=== PATIENT | female | born 1960 | race African-American/Black ===

== ENCOUNTER 2020-02-27 18:08 | Emergency (ER) | payer OTHER ==
--- NOTE | 2020-02-27 18:48 | ER Document Report ---
ED Medical Screen (RME) - General Chief Complaint: Breathing Difficulty Stated Complaint: SENT BY DR ARGUETA/POSSIBLE PNEUMONIA Time Seen by Provider: 02/27/20 18:44 Primary Care Provider: RICHARD MUSA MD [Primary Care Provider] - Follow up as needed Mode of Arrival: Ambulatory Information source: Patient Notes: 59-year-old female presented to ED for complaint diagnosis of pneumonia. Patient states she went to Dr. Musa's office yesterday had blood work and he sent her for CT of the abdomen pelvis today. She states that Dr. Musa told her that the CT showed a pneumonia and he sent her to the emergency room to get blood work and covered test and be treated for the pneumonia because he would be close before her results returned. Patient is alert oriented respirations regular nonlabored speaking in full sentences. She states she has had right abdominal pain not as much of a cough or fever. We will get blood work chest x-ray and covered test and treat accordingly. I have greeted and performed a rapid initial assessment of this patient. A comprehensive ED assessment and evaluation of the patient, analysis of test results and completion of medical decision making process will be conducted by an additional ED providers. TRAVEL OUTSIDE OF THE [place] IN LAST 30 DAYS: No - Related Data Allergies/Adverse Reactions: No Known Allergies Allergy (Verified 04/04/12 08:04) Past Medical History - Past Medical History Cardiac Medical History: Reports: Hx Hypertension Pulmonary Medical History: Denies: Hx Tuberculosis Neurological Medical History: Denies: Hx Seizures Endocrine Medical History: Reports: Hx Diabetes Mellitus Type 1, Hx Diabetes Mellitus Type 2 Skin Medical History: Denies Hx MRSA Infectious Medical History: Denies: Hx MRSA Past Surgical History: Reports: Hx Section - x3, Hx Cholecystectomy, Hx Hysterectomy - larry salpingoophorectomy. Denies: Hx Pacemaker - Immunizations Hx Diphtheria, Pertussis, Tetanus Vaccination: No Doctor's Discharge - Discharge Referrals: RICHARD MUSA MD [Primary Care Provider] - Follow up as needed
[2020-02-27 19:22] LABS: ABSOLUTE LYMPHOCYTES (AUTO) 1.6 10^3/uL (0.5-4.7); ABSOLUTE MONOCYTES (AUTO) 0.6 10^3/uL (0.1-1.4); ABSOLUTE NEUT (AUTO) 3.6 10^3/uL (1.7-8.2); BASOPHILS % (AUTO) 0.4 % (0-2); EOSINOPHILS % (AUTO) 0.4 % (0-6); HEMATOCRIT 39.8 % (36.0-47.0); HEMOGLOBIN 13.4 g/dL (12.0-15.5); MEAN CORPUSCULAR HEMOGLOBIN 28.7 pg (27.0-33.4); MEAN CORPUSCULAR HGB CONC 33.7 g/dL (32.0-36.0); MEAN CORPUSCULAR VOLUME 85 fl (80-97); PLATELET COUNT 236 10^3/uL (150-450); RED BLOOD COUNT 4.68 10^6/uL (3.72-5.28); RED CELL DISTRIBUTION WIDTH 14.4 % (11.5-14.0); SEGMENTED NEUTROPHILS % (AUTO) 62.2 % (42-78); TOTAL CELLS COUNTED % (AUTO) 100 %; WHITE BLOOD COUNT 5.8 10^3/uL (4.0-10.5)
[2020-02-27 19:40] LABS: ALKALINE PHOSPHATASE 68 U/L (38-126); ANION GAP 6 (5-19); ASPARTATE AMINO TRANSFERASE 38 U/L (14-36); BILIRUBIN,DIRECT 0.3 mg/dL (0.0-0.4); BILIRUBIN,TOTAL 0.5 mg/dL (0.2-1.3); BLOOD UREA NITROGEN 12 mg/dL (7-20); CALCIUM 9.5 mg/dL (8.4-10.2); CARBON DIOXIDE 24 mmol/L (22-30); CHLORIDE 109 mmol/L (98-107); GLUCOSE 207 mg/dL (75-110); POTASSIUM 4.3 mmol/L (3.6-5.0); TOTAL PROTEIN 6.8 g/dL (6.3-8.2)
[2020-02-27] MEDS ORDERED: DEXAMETHASONE SOD PHOS INJ 10 MG/1 ML VIAL IV ONE (20:31)
[2020-02-27] MEDS ORDERED: IPRATROPIUM/ALBUTEROL 0.5-2.5 MG/3 ML AMPUL NEB ONE (20:31)
[2020-02-27] MEDS ORDERED: NORMAL SALINE 1000 ML 1,000 ML IV ONE (20:32)
--- NOTE | 2020-02-27 20:35 | ER Document Report ---
ED General - General Chief Complaint: Breathing Difficulty Stated Complaint: SENT BY DR ARGUETA/POSSIBLE PNEUMONIA Time Seen by Provider: 02/27/20 18:44 Primary Care Provider: RICHARD MUSA MD [Primary Care Provider] - Follow up in 1 week Mode of Arrival: Ambulatory TRAVEL OUTSIDE OF THE [place] IN LAST 30 DAYS: No - HPI Notes: Patient is a 59-year-old female with a history of DMII who presents with possible pneumonia that was diagnosed earlier today. Patient states her symptoms began with diffuse abdominal pain 2 to 3 weeks ago. She followed up with her primary care, Dr. Musa, and had a CT abdomen and pelvis done today. CT showed no evidence of acute intra-abdominal infectious/inflammatory processes. Partially imaged lung bases reveals multifocal airspace opacity suggesting multi lobar pneumonia. Today, patient continues to have diffuse abdominal pain that she describes as a sharp burning pain. She also reports onset of cough today that is productive in nature. She denies chest pain, shortness of breath, fever, nasal congestion, sore throat, nausea, vomiting, diarrhea, constipation, and dysuria. Patient denies tobacco, alcohol or recreational drug use. - Related Data Allergies/Adverse Reactions: No Known Allergies Allergy (Verified 02/27/20 20:30) Past Medical History - General Information source: Patient - Social History Smoking Status: Unknown if Ever Smoked Frequency of alcohol use: None Drug Abuse: None Family History: Reviewed & Not Pertinent - Past Medical History Cardiac Medical History: Reports: Hx Hypertension Pulmonary Medical History: Denies: Hx Tuberculosis Neurological Medical History: Denies: Hx Seizures Endocrine Medical History: Reports: Hx Diabetes Mellitus Type 1, Hx Diabetes Mellitus Type 2 Skin Medical History: Denies Hx MRSA Infectious Medical History: Denies: Hx MRSA Past Surgical History: Reports: Hx Section - x3, Hx Cholecystectomy, Hx Hysterectomy - larry salpingoophorectomy. Denies: Hx Pacemaker - Immunizations Hx Diphtheria, Pertussis, Tetanus Vaccination: No Review of Systems - Review of Systems Constitutional: No symptoms reported EENT: No symptoms reported Cardiovascular: No symptoms reported Respiratory: See HPI Gastrointestinal: See HPI Genitourinary: No symptoms reported Female Genitourinary: No symptoms reported Musculoskeletal: No symptoms reported Skin: No symptoms reported Hematologic/Lymphatic: No symptoms reported Neurological/Psychological: No symptoms reported Physical Exam - Vital signs Vitals: Temp Pulse Resp BP Pulse Ox 99.2 F 83 16 145/72 H 100 02/27/20 18:49 02/27/20 18:49 02/27/20 18:49 02/27/20 18:49 02/27/20 18:49 - Notes Notes: PHYSICAL EXAMINATION: VITALS: Vitals reviewed and within normal limits. GENERAL: Well-appearing, well-nourished and in no acute distress. HEAD: Atraumatic, normocephalic. EYES: Pupils equal round and reactive to light, extraocular movements intact, sclera anicteric, conjunctiva are normal. ENT: nares patent, oropharynx clear without exudates. Moist mucous membranes. NECK: Normal range of motion, supple without lymphadenopathy. LUNGS: Inspiratory and expiratory wheezes noted through out bilaterally. No labored respirations. HEART: Regular rate and rhythm without murmurs. ABDOMEN: Soft abdomen with normoactive bowel sounds. Lower abdominal tenderness just below the umbilicus. No guarding, no rebound. No masses appreciated. EXTREMITIES: Normal range of motion, no pitting or edema. No cyanosis. NEUROLOGICAL: No focal neurological deficits. Moves all extremities spo ntaneously and on command. PSYCH: Normal mood, normal affect. SKIN: Warm, Dry, normal turgor, no rashes or lesions noted. Course - Re-evaluation Re-evalutation: Patient is a 59-year-old female with a history of DMII who presents with possible pneumonia that was diagnosed earlier today. She had a CT abdomen and pelvis done today which showed no evidence of acute intra-abdominal infectious/inflammatory processes. Partially imaged lung bases reveals multifocal airspace opacity suggesting multi lobar pneumonia. Patient endorses abdominal pain and cough but no other symptoms. Vital signs are within normal limits. On exam, inspiratory and expiratory wheezes are noted throughout bilaterally. Lower abdominal tenderness noted just below the umbilicus. Duoneb, decadron and 1L IV fluids ordered for symptomatic relief. WBC within lower normal limits at 5.8. AST and ALT elevated mildly at 38 each. Glucose 207. Chest x-ray shows no overt acute findings in chest x-ray. However, CT abdomen pelvis demonstrates multiple patchy groundglass infiltrates in the lung bases which are less well seen on chest x-ray and may be compatible with viral pneumonia. I ordered ambulation with pulse ox and patient tolerated it well with pulse of 95 and O2 Sat 96-98%. Based on patient's symptoms, I have a concern for COVID-19 and recommended she get tested. Patient agreed. Based on CT findings and the patient's normal vital signs and oxygenation, I believe it is safe to discharge the patient home. Patient given initial dose of azithromycin and will be given a prescription as well. Detailed return precautions given and patient instructed to follow up with her PCP in one week. - Vital Signs Vital signs: Temp Pulse Resp BP Pulse Ox 98.8 F 97 87 H 133/64 H 96 02/27/20 23:59 02/27/20 23:59 02/27/20 23:59 02/27/20 23:59 02/27/20 23:59 - Laboratory Result Diagrams: 02/27/20 19:05 02/27/20 19:05 Laboratory results interpreted by me: 02/27/20 02/27/20 19:05 19:05 RDW 14.4 H Chloride 109 H Glucose 207 H AST 38 H ALT 38 H - Diagnostic Test Radiology reviewed: Image reviewed, Reports reviewed Radiology results interpreted by me: Chest X-Ray 02/27/20 18:25 IMPRESSION: No overt acute findings in chest x-ray. However, CT abdomen pelvis demonstrates multiple patchy groundglass infiltrates in the lung bases which are less well seen on chest x-ray and may be compatible with viral pneumonia. Discharge - Discharge Clinical Impression: Cough Pneumonia Qualifiers: Pneumonia type: due to unspecified organism Laterality: bilateral Lung location: lower lobe of lung Qualified Code(s): J18.9 - Pneumonia, unspecified organism Abdominal pain Qualifiers: Abdominal location: generalized Qualified Code(s): R10.84 - Generalized abdominal pain Condition: Stable Disposition: HOME, SELF-CARE Additional Instructions: Pneumonia Your examination indicates that you have pneumonia. This is an infection of the lung tissue, usually caused by bacteria or a virus. Symptoms include cough, fever, shaking chills, chest pain, shortness of breath, and coughing up bloody sputum. Treatment for bacterial pneumonia includes rest, antibiotics for 10 to 14 days, increasing your clear liquid intake, a cool mist humidifier at your bedside, and fever medication. Often, a repeat chest X-ray is performed in a few weeks--even if you feel better--to ascertain whether the infection has completely resolved and no underlying lung problem is present. You should call the physician if you develop persistent vomiting, high fever that does not respond to fever medication, increasing shortness of breath, confusion, or lethargy. Also, failure to improve within two to three days is an indication for re-examination. Prescriptions: Azithromycin 250 mg PO DAILY 4 Days #4 tablet Forms: Return to Work Referrals: RICHARD MUSA MD [Primary Care Provider] - Follow up in 1 week
[2020-02-27 21:46] LABS: VENOUS BLOOD HCO3 22.9 mmol/L (20-32); VENOUS BLOOD PCO2 44.4 mmHg (35-63); VENOUS BLOOD PH 7.33 (7.30-7.42)
--- NOTE | 2020-02-27 21:59 | RADIOLOGY REPORT (SQ) ---
EXAM DESCRIPTION: XR CHEST 1 VIEW COMPLETED DATE/TME: 02/27/2020 18:25 CLINICAL HISTORY: 59 years, Female, pneumonia COMPARISON: CT abdomen pelvis from today. TECHNIQUE: Portable upright chest x-ray FINDINGS: Cardiomediastinal silhouette is not enlarged. No overt acute lung or pleural abnormalities. IMPRESSION: No overt acute findings in chest x-ray. However, CT abdomen pelvis demonstrates multiple patchy groundglass infiltrates in the lung bases which are less well seen on chest x-ray and may be compatible with viral pneumonia.
[2020-02-27] MEDS ORDERED: AZITHROMYCIN 250 MG TABLET PO ONE (23:36)
[2020-02-28] VITALS: BP 133/64
== END 2020-02-27 23:58 | disposition home or self-care (01) ==
LOC: ER 18:08
DX: J18.9 Pneumonia, unspecified organism (principal); U07.1 COVID-19; R05 Cough; R10.84 Generalized abdominal pain; R74.0 Nonspecific elevation of levels of transaminase and lactic acid dehydrogenase [LDH]; E11.9 Type 2 diabetes mellitus without complications; I10 Essential (primary) hypertension; Z90.49 Acquired absence of other specified parts of digestive tract
CPT/HCPCS: 94640; 99284; 96361; 96365; 36415; 87040; 85025; 80053; 82565; 82803; 71045; 74177; U0003; J7030; J1100; C9803; 87635

== ENCOUNTER → 2020-02-27 | Outpatient (CLI) | payer OTHER ==
--- NOTE | 2020-02-27 12:47 | RADIOLOGY REPORT (SQ) ---
EXAM DESCRIPTION: CT ABD/PELVIS WITH IV ONLY IMAGES COMPLETED DATE/TIME: 02/27/2020 12:17 pm REASON FOR STUDY: R10.84 GENERALIZED ABDOMINAL PAIN R10.84 GENERALIZED ABDOMINAL PAIN COMPARISON: 06/21/2014 TECHNIQUE: CT scan of the abdomen and pelvis performed using helical scanning technique with dynamic intravenous contrast injection. No oral contrast. Images reviewed with lung, soft tissue, and bone windows. Reconstructed coronal and sagittal MPR images reviewed. Delayed images for evaluation of the urinary system also acquired. All images stored on PACS. All CT scanners at this facility use dose modulation, iterative reconstruction, and/or weight based d osing when appropriate to reduce radiation dose to as low as reasonably achievable (ALARA). [facility]: Dose Right [facility]: CareDose [facility]: Dose Right [facility]: Teradose 4D [facility]: Connected Data CONTRAST TYPE AND DOSE: contrast/concentration: Isovue 350.00 mmol/ml; Total Contrast Delivered: 99. 0 ml; Total Saline Delivered: 29.2 ml RENAL FUNCTION: Creatinine 0.6 RADIATION DOSE: CT Rad equipment meets quality standard of care and radiation dose reduction techniq ues were employed. CTDIvol: 11.2 - 15.0 mGy. DLP: 1604 mGy-cm.. LIMITATIONS: None. FINDINGS: LOWER CHEST: Multifocal rounded mixed interstitial and airspace opacities. LIVER: Hepatic steatosis. No focal mass. No dilated ducts. SPLEEN: Normal size. No focal lesions. PANCREAS: No masses. No significant calcifications. No adjacent inflammation or peripancreatic fluid collections. Pancreatic duct not dilated. GALLBLADDER: Surgically absent. ADRENAL GLANDS: No significant masses or asymmetry. RIGHT KIDNEY AND URETER: No solid masses. No significant calcifications. No hydronephrosis or hyd roureter. LEFT KIDNEY AND URETER: No solid masses. Likely tiny cortical cyst. No significant calcifications. No hydronephrosis or hydroureter. AORTA AND VESSELS: No aneurysm. No dissection. Renal arteries, SMA, celiac without stenosis. RETROPERITONEUM: No retroperitoneal adenopathy, hemorrhage or masses. BOWEL AND PERITONEAL CAVITY: No masses or inflammatory changes. No free fluid or peritoneal masses. APPENDIX: Surgically absent. PELVIS: No mass. No free fluid. Normal bladder. ABDOMINAL WALL: No masses. No hernias. BONES: No significant or acute findings. OTHER: No other significant finding. IMPRESSION: 1. No evidence of acute intra-abdominal infectious/ inflammatory process. 2. Partially imaged lung bases reveals multifocal airspace opacities suggesting multi lobar pneumoni a. Given pattern, recommend consideration for atypical etiologies such as viral (COVID) in treatment planning. TECHNICAL DOCUMENTATION: JOB ID: [id number] Quality ID # [id number]: Final reports with documentation of one or more dose reduction techniques (e.g., Au tomated exposure control, adjustment of the mA and/or kV according to patient size, use of iterative reconstruction technique) 2010 [email or web address]- All Rights Reserved Reading location - IP/workstation name: [email or web address]
== END ==
LOC: RAD 12:22
PROVIDERS: ATTEND Internal Medicine
DX: R10.84 Generalized abdominal pain (principal); J98.4 Other disorders of lung
CPT/HCPCS: 74177; 82565

== ENCOUNTER → 2020-03-28 | Outpatient (CLI) | payer OTHER ==
--- NOTE | 2020-03-28 15:35 | WOMENS IMAGING REPORT ---
EXAM DESCRIPTION: 3D SCREENING MAMMO BILAT IMAGES COMPLETED DATE/TIME: 03/28/2020 3:19 pm REASON FOR STUDY: Z12.31 ENCNTR SCREEN MAMMOGRAM FOR MALIGNANT NEOPLASM OF BREAST Z12.31 ENCNTR SCR EEN MAMMOGRAM FOR MALIGNANT NEOPLASM OF MANAN COMPARISON: 02/24/2018 and 05/27/2016. EXAM PARAMETERS: Views: Standard craniocaudal and mediolateral oblique views of each breast recorded using digital acquisition and breast tomosynthesis. Read with the assistance of CAD. .[facility] - R2 [employer] Version 9.2 LIMITATIONS: None. FINDINGS: No suspicious masses, suspicious calcifications or architectural distortion. No areas of c oncern. IMPRESSION: NEGATIVE MAMMOGRAM. BIRADS 1. BREAST DENSITY: b. There are scattered areas of fibroglandular density. BIRAD: ASSESSMENT: 1 NEGATIVE RECOMMENDATION: ROUTINE SCREENING COMMENT: The patient has been notified of the results by letter per MQSA requirements. Additional no tification policies are in place for contacting patient with suspicious or incomplete findings. Quality ID #[id number]: The [employer] recommends an annual screening mammogram for women aged 40 years or over. This facility utilizes a reminder system to ensure that all patients receive reminder letters, and/or direct phone calls for appointments. This includes reminders for routine scr eening mammograms, diagnostic mammograms, or other Breast Imaging Interventions when appropriate. Th is patient will be placed in the appropriate reminder system. TECHNICAL DOCUMENTATION: FINDING NUMBER: (1) ASSESSMENT: (1) JOB ID: [id number] 2010 [employer]- All Rights Reserved Reading location - IP/workstation name: [email or web address]
== END ==
LOC: WI 15:04
PROVIDERS: ATTEND Internal Medicine
DX: Z12.31 Encounter for screening mammogram for malignant neoplasm of breast (principal)
CPT/HCPCS: 77063; 77067